=== PATIENT | male | born 1950 | race Caucasian/White ===

== ENCOUNTER 2020-03-01 12:30 | Observation (INO) | payer MEDICARE, OTHER, SELFPAY ==
[2020-03-01] VITALS (8 sets, daily range): BP systolic 108–137; BP diastolic 65–93; PULSE 63–98; RESP 16–22; TEMP 36.4–36.7; O2SAT 94–97; BMI 37.1
--- NOTE | 2020-03-01 13:20 | DI.CT.S_ITS ---
PROCEDURE: CT ABDOMEN PELVIS W CON INDICATIONS: painless rectal bleeding TECHNIQUE: After the administration of oral and intravenous contrast, 5 mm thick sections acquired from the diaphragms to the symphysis. 5 mm thick coronal and sagittal reformats were performed. For radiation dose reduction, the following was used: automated exposure control, adjustment of mA and/or kV according to patient size. COMPARISON: None. FINDINGS: Image quality: Diagnostic. ABDOMEN: Lung bases: Lung bases are clear. However, calcified granuloma in the posterior right costophrenic angle is evident (image 3, series 2), measuring approximately 7 mm in diameter. An additional calcified granuloma is also evident slightly more inferiorly and laterally within the right lower lobe (image 12, series 2). Heart size is normal. Solid organs: The liver is normal in size, but noted to be slightly hypodense when compared to the spleen. Scattered foci of low-attenuation are seen within the medial segment of the left hepatic lobe that are compatible with small cysts. The gallbladder is within normal limits. The spleen, adrenals, and pancreas are unremarkable. The kidneys are normal in size and demonstrate mild retained lobulation. There is no hydronephrosis. Small hypodense foci are evident involving both kidneys. The largest is noted to be located along the posterior aspect of the inferior left kidney and measures 2.2 cm in diameter with a corresponding density value of 20 Hounsfield units, most likely representing a slightly dense cyst. This density value is technically indeterminate, however. A nonobstructing 4 mm calculus is evident within it the mid to upper right kidney. There is no hydronephrosis. No ureteral calculi or hydroureter is evident. Peritoneum and bowel: There is a small hiatal hernia. Mild prominence of the wall of the distal esophagus is present. The small bowel loops are nondilated. The appendix is well-visualized and normal without surrounding inflammation. A moderate amount of residual stool is seen within the colon. No obvious colonic masses are evident. No significant colonic diverticulosis is appreciated. His note that the colon is not adequately evaluated for masses on CT without oral contrast. There is a small fat containing periumbilical hernia. No free fluid, loculated fluid collection or free air is evident. Nodes and vessels: No retroperitoneal or mesenteric adenopathy. Aorta and inferior vena cava are normal in caliber. A circumaortic left renal vein is noted. Bones: No acute fracture or suspicious osseous lesion is evident. Moderate degenerative changes of the lumbar spine are present. PELVIS: Genitourinary: Bladder wall thickness is normal. The prostate gland is enlarged and partially projects into the urinary bladder. There may be a small amount of air contained within the bladder as well. The prostate measures at least 5.9 x 6.2 cm on the axial images (image 90, series 2). Miscellaneous: There is a small fat containing left inguinal hernia. No right inguinal hernias are evident. No free fluid or loculated fluid collections are identified. Bones: No suspicious bony lesions. No acute pelvic fractures are identified. No suspicious osseous lesions are present. IMPRESSION: 1. The source of the patient's rectal bleeding is not evident. 2. No possible mild constipation. No bowel obstruction. 3. Small fat containing periumbilical hernia. 4. Small hiatal hernia. Mild wall thickening of the distal esophagus may represent sequela from chronic reflux esophagitis. 5. Small fat containing left inguinal hernia. 6. Probable hepatic steatosis. 7. Bilateral renal cysts. Indeterminant exophytic left renal lesion most likely represents a hyperdense cyst. CT or MR urogram is recommended for further evaluation, which may be performed on a nonemergent basis. 8. Nonobstructing right renal calculus. 9. Enlarged prostate. Dictated by: Thad Parker M.D. on 03/01/2020 at 13:26 Approved by: Thad Parker M.D. on 03/01/2020 at 13:33
[2020-03-01 13:34] LABS: Add Manual Diff / Slide Review NO; Basophils Absolute Auto 100 /uL (0-100); Basophils Percent Auto 0.9 % (0-2); Eosinophils Absolute Auto 200 /uL (0-450); Eosinophils Percent Auto 1.9 % (2-4); Hematocrit 42.6 % (41-53); Hemoglobin 14.9 g/dL (13.5-17.5); Lymphocytes Absolute Auto 1700 /uL (1100-4500); Lymphocytes Percent Auto 20.2 % (25-40); Mean Corpuscular HGB Conc 34.9 % (30-36); Mean Corpuscular Hemoglobin 30.6 PG (26-34); Mean Corpuscular Volume 87.7 fL (80-100); Monocytes Absolute Auto 500 /uL (0-900); Monocytes Percent Auto 6.6 % (3-14); Neutrophils Absolute Auto 5800 /uL (1500-7000); Neutrophils Percent Auto 70.4 % (50-75); Platelet Count 209 X10^3/uL (150-400); Red Blood Cell Count 4.86 X10^6/uL (4.5-5.9); Red Cell Distribution Width 13.6 % (11.6-14.8); White Blood Cell Count 8.2 X10^3/uL (4.5-11.0)
[2020-03-01 13:45] LABS: Alanine Aminotransferase 30 IU/L (<50); Albumin 3.9 g/dL (3.5-5.0); Albumin Globulin Ratio 1.3 (1.0-2.8); Alkaline Phosphatase 69 U/L (38-126); Aspartate Aminotransferase 48 IU/L (17-59); BUN Creatinine Ratio 23.7 (6-22); Bilirubin Total 0.6 mg/dL (0.2-1.3); Blood Urea Nitrogen 28 mg/dL (9-20); Calcium 9.8 mg/dL (8.4-10.2); Carbon Dioxide 24 mmol/L (22-32); Chloride 105 mmol/L (98-107); Estimated Glomerular Filt Rate > 60.0 mL/min (>60); Globulin 2.9 g/dL (1.7-4.1); Glucose 153 mg/dL (80-110); HEMOLYSIS 49 (0-50); Potassium 4.3 mmol/L (3.4-5.1); Sodium 135 mmol/L (137-145); Total Protein 6.8 g/dL (6.3-8.2)
[2020-03-01] MEDS: SODIUM CHLORIDE 0.9% 1,000 ML 1000 ML IV (13:45)
[2020-03-01 13:56] LABS: Prothrombin Time 11.6 SECONDS (10.1-12.7)
[2020-03-01 13:59] LABS: PTT Partial Thromboplastin Tim 30 SECONDS (26.4-36.2)
--- NOTE | 2020-03-01 14:41 | ED.GIBLEED ---
HPI - GI Bleed General Chief complaint: GI Bleed Stated complaint: rectal bleeding today Time Seen by Provider: 03/01/20 12:46 Source: patient Mode of arrival: Ambulatory Limitations: no limitations History of Present Illness HPI Narrative: CC: Painless Rectal Bleeding HPI: The patient is a 69-year-old male who presents to the emergency department after he developed dark red rectal bleeding at approximately 9:30 a.m.. At 12:00 p.m. the bleeding appeared to be more bright. He states that there was blood in the toilet. He denies any rectal pain or discomfort or history of hemorrhoids. He denies a history of Crohn's disease ulcerative colitis diverticulitis diverticulosis. He has had a few colonoscopies without any pathology being identified. He denies being dizzy lightheaded. He states that feel completely normal without any pain or discomfort except for the rectal bleeding. He denies a history of diabetes mellitus but states that he has a history of gout. He also has a history of hypertension but no history of myocardial infarction COPD or asthma. Is a former smoker does not drink alcohol use any drugs including marijuana. Related Data Allergies Allergy/AdvReac Type Severity Reaction Status Date / Time No Known Drug Allergies Allergy Verified 03/01/20 12:52 Review of Systems Review of Systems Narrative: REVIEW OF SYSTEMS: CONSTITUTIONAL: The patient denies any fever chills or sweats. NEUROLOGICAL: Denies a headache numbness tingling paresthesias or anesthesia. EENT: He has had no sore throat or trouble swallowing CARDIO-PULMONARY: Denies any chest pain cough shortness of breath difficulty in breathing palpitations dizziness. GASTROINTESTINAL: He denies any abdominal pain nausea vomiting diarrhea. He has had rectal bleeding. He has never had this before. GENITAL URINARY: Denies any urinary symptoms. MUSCULOSKELETAL/ RHEUMATOLOGICAL: He has had no pain or discomfort. He states that he feels completely normal except for the rectal bleeding Patient History Medical History (Updated 03/01/20 @ 18:53 by Soc[place] Grande DO) Gout (Acute) Hypertension (Acute) Nephrolithiasis (Acute) Surgical History History of surgical removal of ganglion cyst (Acute) Status post left partial knee replacement (Acute) Family History (Updated 03/01/20 @ 18:54 by Soco Grande DO) Mother Liver cancer Father CVA (cerebral vascular accident) AAA (abdominal aortic aneurysm) Brother Healthy adult Sister Osteoarthritis Social History Smoking Status: Never smoker Smoking Status: Never smoker alcohol intake frequency: 0-2 drinks per day Substance Use Type: does not use Exam Narrative Exam Narrative: PHYSICAL EXAM: CONSTITUTIONAL: Awake, Alert, Oriented, Coherent, Cooperative in NAD. Does not appear toxic or ill. HEAD: AT/NC EENT: PERRL, FROM of eyes, no discharge, no nystagmus NOSE:No epistaxis or nasal drainage MOUTH:Oral mucosa is moist and pink, posterior pharynx is without erythema or exudate. NECK: Supple, no obvious JVD, Trachea is midline without stridor, no palpable LN. SPINE: Palpationof the cervical, Thoracic, Lumbar or Sacral spine reveals no gross deformity or tenderness. No CVA tenderness. THORAX: No deformity, retractions, chest wall tenderness. LUNGS: Clear, symmetrical breath sounds without respiratory distress. HEART: Normal heart tones, regular rhythm and rate without murmur. ABDOMEN: Soft, non-tender, normal bowel sounds without guarding, rebound, rigidity or palpable mass. Rectal Exam: No hemorrhoids good sphincter tone no rectal masses the patient has grossly bloody stool that appears like bright raspberry stool that tests grossly positive for blood. EXTREMITIES: No edema, deformity, tenderness or cyanosis. SKIN: No rash, bruising, petechiae or purpura. NEURO: Awake, alert, oriented, conversive, cranial nerves II-XII are symmetrical , moves all 4 extremities and is ambulatory. Initial Vital Signs Initial Vital Signs: Vital Signs Temperature 97.8 F 03/01/20 12:48 Pulse Rate 74 03/01/20 12:48 Respiratory Rate 16 03/01/20 12:48 Blood Pressure 137/84 03/01/20 12:48 Pulse Oximetry 96 03/01/20 12:48 Course Course Course Narrative: 1441: The patient's CT of the abdomen revealed 1. The source of the patient's rectal bleeding is not evident. 2. No possible mild constipation. No bowel obstruction. 3. Small fat containing periumbilical hernia. 4. Small hiatal hernia. Mild wall thickening of the distal esophagus may represent sequelae from chronic reflux esophagitis. 5. Small fat containing left inguinal hernia. 6. Probable hepatic steatosis. 7. Bilateral renal cysts. Indeterminate exophytic left renal lesion most likely represents a hyperdense cyst. CT or MRI urogram is recommended for further evaluation, which may be performed on nonemergent basis. 8. Nonobstructing right renal calculus. 9. Remote prostate. The patient's laboratory chemistries do not reveal any acute gross abnormality. 1451: I performed a rectal band on the patient which was grossly bloody and appeared like raspberry jelly that was grossly positive for occult blood. There was no rectal tenderness rectal masses or hemorrhoids palpable. A call was placed into Dr. Proctor the general surgeon on-call to discuss the patient. 1455: I discussed the patient with Dr. Proctor, he who states that the patient gets admitted to Medicine and he will arm scope the patient. He agrees that the patient could very easily decompensate and recommends that the patient be admitted. The arm Dr. Grande has been paged. Orders Ordered: ED Orders 03/01/20 13:20 CT abdomen pelvis w con Stat 03/01/20 13:24 Complete Blood Count AUTO DIFF Stat Comprehensive Metabolic Panel Stat Partial Thromboplastin Time Stat Prothrombin Time INR Stat Type and Screen Stat Acetaminophen (Tylenol) 650 mg PO Q6HR PRN PRN Reason: Fever/Mild Pain (1-3) Al Hydrox/Mg Hydrox/Simethicone (Maalox Plus) 30 ml PO Q6HR PRN PRN Reason: Dyspepsia Calcium Carbonate (Tums) 1,000 mg PO Q4HR PRN PRN Reason: Dyspepsia Sodium Chloride (Normal Saline 0.9%) 1,000 mls @ 100 mls/hr IV CONT ANNAMARIE Last Admin: 03/01/20 18:00 Dose: 100 mls/hr Documented by: [email or web address] Magnesium Hydroxide (Milk Of Magnesia) 30 ml PO DAILY PRN PRN Reason: Constipation Naloxone HCl (Narcan) 0.2 mg IV Q2MIN PRN PRN Reason: Opiate Reversal Ondansetron HCl (Zofran) 4 mg IV Q8HR PRN PRN Reason: Nausea And Vomiting Promethazine HCl (Phenadoz) 12.5 mg ID Q6HR PRN PRN Reason: Nausea And Vomiting Discontinued Medications Sodium Chloride (Normal Saline 0.9%) 1,000 mls @ 1,000 mls/hr IV BOLUS ONE Stop: 03/01/20 14:16 Last Infusion: 03/01/20 15:31 Dose: 0 mls/hr Documented by: Admin: 03/01/20 13:45 Dose: 1,000 mls/hr Documented by: [email or web address] Polyethylene Glycol/Electrolytes (Golytely Solution) 4,000 ml PO NOW ONE Stop: 03/01/20 18:11 Last Admin: 03/01/20 18:18 Dose: 4,000 ml Documented by: [email or web address] Vital Signs Vital signs: Vital Signs - 8 hr 03/01/20 12:48 03/01/20 13:33 03/01/20 13:38 Temperature 97.8 F Pulse Rate 74 71 Pulse Rate [Orthostatic Lying] 69 Pulse Rate [Orthostatic Sitting] 78 Pulse Rate [Orthostatic Standing] 68 Respiratory Rate 16 Blood Pressure 137/84 Blood Pressure [Left Arm] 108/65 Blood Pressure [Orthostatic Lying] 108/65 Blood Pressure [Orthostatic Sitting] 113/72 Blood Pressure [Orthostatic Standing] 115/79 Pulse Oximetry 96 94 03/01/20 14:47 Temperature Pulse Rate 98 H Pulse Rate [Orthostatic Lying] Pulse Rate [Orthostatic Sitting] Pulse Rate [Orthostatic Standing] Respiratory Rate 22 Blood Pressure Blood Pressure [Left Arm] 136/93 H Blood Pressure [Orthostatic Lying] Blood Pressure [Orthostatic Sitting] Blood Pressure [Orthostatic Standing] Pulse Oximetry 97 MDM - GI Bleed Lab Data Result diagrams: 03/01/20 13:24 03/01/20 13:24 Labs: Lab Results 03/01/20 03/01/20 03/01/20 Range/Units 13:24 13:24 13:24 WBC 8.2 (4.5-11.0) X10^3/uL RBC 4.86 (4.5-5.9) X10^6/uL Hgb 14.9 (13.5-17.5) g/dL Hct 42.6 (41-53) % MCV 87.7 (80-100) fL MCH 30.6 (26-34) PG MCHC 34.9 (30-36) % RDW 13.6 (11.6-14.8) % Plt Count 209 (150-400) X10^3/uL Neut % (Auto) 70.4 (50-75) % Lymph % (Auto) 20.2 L (25-40) % [place] % (Auto) 6.6 (3-14) % Eos % (Auto) 1.9 L (2-4) % Baso % (Auto) 0.9 (0-2) % Neut # (Auto) 5800 (3418-6031) /uL Lymph # (Auto) 1700 (4041-7527) /uL [place] # (Auto) 500 (0-900) /uL Eos # (Auto) 200 (0-450) /uL Baso # (Auto) 100 (0-100) /uL PT 11.6 (10.1-12.7) SECONDS INR 1.0 (0.9-1.3) APTT 30 (26.4-36.2) SECONDS Sodium 135 L (137-145) mmol/L Potassium 4.3 (3.4-5.1) mmol/L Chloride 105 (98-107) mmol/L Carbon Dioxide 24 (22-32) mmol/L BUN 28 H (9-20) mg/dL Creatinine 1.18 (0.66-1.25) mg/dL Estimated GFR > 60.0 (>60) mL/min BUN/Creatinine Ratio 23.7 H (6-22) Glucose 153 H (80-110) mg/dL Calcium 9.8 (8.4-10.2) mg/dL Total Bilirubin 0.6 (0.2-1.3) mg/dL AST 48 (17-59) IU/L ALT 30 (<50) IU/L Alkaline Phosphatase 69 (38-126) U/L Total Protein 6.8 (6.3-8.2) g/dL Albumin 3.9 (3.5-5.0) g/dL Globulin 2.9 (1.7-4.1) g/dL Albumin/Globulin Ratio 1.3 (1.0-2.8) Blood Type Antibody Screen 03/01/20 Range/Units 13:24 WBC (4.5-11.0) X10^3/uL RBC (4.5-5.9) X10^6/uL Hgb (13.5-17.5) g/dL Hct (41-53) % MCV (80-100) fL MCH (26-34) PG MCHC (30-36) % RDW (11.6-14.8) % Plt Count (150-400) X10^3/uL Neut % (Auto) (50-75) % Lymph % (Auto) (25-40) % [place] % (Auto) (3-14) % Eos % (Auto) (2-4) % Baso % (Auto) (0-2) % Neut # (Auto) (3419-4624) /uL Lymph # (Auto) (5559-3750) /uL [place] # (Auto) (0-900) /uL Eos # (Auto) (0-450) /uL Baso # (Auto) (0-100) /uL PT (10.1-12.7) SECONDS INR (0.9-1.3) APTT (26.4-36.2) SECONDS Sodium (137-145) mmol/L Potassium (3.4-5.1) mmol/L Chloride (98-107) mmol/L Carbon Dioxide (22-32) mmol/L BUN (9-20) mg/dL Creatinine (0.66-1.25) mg/dL Estimated GFR (>60) mL/min BUN/Creatinine Ratio (6-22) Glucose (80-110) mg/dL Calcium (8.4-10.2) mg/dL Total Bilirubin (0.2-1.3) mg/dL AST (17-59) IU/L ALT (<50) IU/L Alkaline Phosphatase (38-126) U/L Total Protein (6.3-8.2) g/dL Albumin (3.5-5.0) g/dL Globulin (1.7-4.1) g/dL Albumin/Globulin Ratio (1.0-2.8) Blood Type O Positive Antibody Screen Negative Discharge Plan Departure Patient Disposition: Admitted As Inpatient Clinical Impression: Acute lower GI bleeding Referrals: Vipul Florentino MD [Primary Care Provider] - Admit Date/Time: 03/01/20 16:05 Admit Provider: Soco Grande
[2020-03-01] MEDS: SODIUM CHLORIDE 0.9% 1,000 ML 100 ML IV (18:00)
[2020-03-01] MEDS: PEG3350/SOD SULF,BICARB,CL/KCL 4,000 ML SOLUTION 4000 ML PO (18:18)
--- NOTE | 2020-03-01 18:49 | PM.HP.1 ---
History of Present Illness History of Present Illness Date Patient Seen: 03/01/20 Chief complaint: rectal bleeding today Narrative: Jakub Wing is a 69-year-old male with a past medical history significant for hypertension and gout who presented to the ED after several episodes of hematochezia. The patient reports that he awoke this morning had a normal bowel movement around 8:00 a.m.. He then later in the morning around 9:45 had a painless dark red bowel movement with blood clots. He proceeded about his day and had another episode of hematochezia around 12:45. He then had another episode of hematochezia around 16:45 prompting him to go to the emergency department. He has never had had rectal bleeding previously. He had a sigmoidoscopy at 51 years old and then a colonoscopy at 61 years old which was reportedly within normal limits and had no polyps present. Has no personal or family history of colon cancer or inflammatory bowel disease. He reports normal bowel function with occasional constipation in which he needs to strain to have a bowel movement approximately once a week. He denies headache, lightheadedness or dizziness, near-syncope or syncope, chest pain, palpitations, or fatigue. In the ED, his hemoglobin and hematocrit are within normal limits but he was found to have bright red blood per rectum and no external hemorrhoids per ED provider. The patient is being admitted observation for close monitoring and bowel prep and colonoscopy to evaluate GI bleed. PCP Dr. Florentino Patient History Medical History (Updated 03/01/20 @ 22:14 by [place] DO) Gout (Acute) Hypertension (Acute) Nephrolithiasis (Acute) Osteoarthritis (Acute) Surgical History History of surgical removal of ganglion cyst (Acute) Status post left partial knee replacement (Acute) Family & Social History Family History Mother Liver cancer Father CVA (cerebral vascular accident) AAA (abdominal aortic aneurysm) Brother Healthy adult Sister Osteoarthritis Safety & Behavioral: Feels Safe in Current Yes Environment Been Physically Hurt or No Threatened By a Person Tobacco & Substance use: Smoking Status Never smoker alcohol intake frequency None Substance Use Type does not use Meds Home Medications and Allergies Home Medications Medication Instructions Recorded Confirmed Type allopurinol 100 mg PO 03/01/20 History hydrochlorothiazide 12.5 mg PO 03/01/20 History losartan 100 mg PO 03/01/20 History Allergies Allergy/AdvReac Type Severity Reaction Status Date / Time No Known Drug Allergies Allergy Verified 03/01/20 12:52 Review of Systems Review of Systems Narrative: A 10 system comprehensive review of systems was conducted with the patient and found to be negative except as above in the History of Present Illness. Exam Vital Signs (past 8 hours): - 03/01/20 12:48 03/01/20 13:33 03/01/20 13:38 Temperature 97.8 F Pulse Rate 74 71 Pulse Rate [Orthostatic Lying] 69 Pulse Rate [Orthostatic Sitting] 78 Pulse Rate [Orthostatic Standing] 68 Respiratory Rate 16 Blood Pressure 137/84 Blood Pressure [Left Arm] 108/65 Blood Pressure [Orthostatic Lying] 108/65 Blood Pressure [Orthostatic Sitting] 113/72 Blood Pressure [Orthostatic Standing] 115/79 Pulse Oximetry 96 94 03/01/20 14:47 03/01/20 17:05 Temperature 97.6 F Pulse Rate 98 H 65 Pulse Rate [Orthostatic Lying] Pulse Rate [Orthostatic Sitting] Pulse Rate [Orthostatic Standing] Respiratory Rate 22 18 Blood Pressure 131/83 Blood Pressure [Left Arm] 136/93 H Blood Pressure [Orthostatic Lying] Blood Pressure [Orthostatic Sitting] Blood Pressure [Orthostatic Standing] Pulse Oximetry 97 97 Oxygen Delivery Method Room Air Narrative Exam Narrative: General: Older male sitting in bed and in no acute distress, well-developed, well-nourished, appropriately interactive. HEENT: Normocephalic, atraumatic. External ears without defect. Pupils equal, round, and reactive to light. Anicteric sclerae, moist conjunctivae, and no lid lag. Oropharynx free of erythema and cobble stoning with moist mucosa. Neck: Supple with full range of motion. No jugular venous distension. No lymphadenopathy or thyromegaly. Cardiovascular: Regular rate and rhythm without murmurs, rubs, or gallops appreciated. Pulmonary: Clear to auscultation bilaterally without crackles, wheezes, or rhonchi. Normal respiratory effort with no use of accessory muscles. Abdomen: Soft, obese, bowel sounds present, nontender, nondistended. No hepatosplenomegaly or masses appreciated. Extremities: No clubbing, cyanosis, or edema. Skin: Normal temperature, turgor, and texture; no rash, ulcers, or subcutaneous nodules appreciated. Neurological: Cranial nerves grossly intact. Normal muscle strength, tone, and bulk. Reflexes, coordination, and sensory function within normal limits. No known gait impairment. Psychiatric: Normal mood and affect. Alert and oriented to person, place, and time. Objective Labs Result Diagrams: 03/01/20 13:24 03/01/20 21:20 Labs: Laboratory Results - last 24 hr 03/01/20 03/01/20 03/01/20 13:24 13:24 13:24 WBC 8.2 RBC 4.86 Hgb 14.9 Hct 42.6 MCV 87.7 MCH 30.6 MCHC 34.9 RDW 13.6 Plt Count 209 Neut % (Auto) 70.4 Lymph % (Auto) 20.2 L [place] % (Auto) 6.6 Eos % (Auto) 1.9 L Baso % (Auto) 0.9 Neut # (Auto) 5800 Lymph # (Auto) 1700 [place] # (Auto) 500 Eos # (Auto) 200 Baso # (Auto) 100 PT 11.6 INR 1.0 APTT 30 Sodium 135 L Potassium 4.3 Chloride 105 Carbon Dioxide 24 BUN 28 H Creatinine 1.18 Estimated GFR > 60.0 BUN/Creatinine Ratio 23.7 H Glucose 153 H Calcium 9.8 Total Bilirubin 0.6 AST 48 ALT 30 Alkaline Phosphatase 69 Total Protein 6.8 Albumin 3.9 Globulin 2.9 Albumin/Globulin Ratio 1.3 Blood Type Antibody Screen 03/01/20 13:24 WBC RBC Hgb Hct MCV MCH MCHC RDW Plt Count Neut % (Auto) Lymph % (Auto) [place] % (Auto) Eos % (Auto) Baso % (Auto) Neut # (Auto) Lymph # (Auto) [place] # (Auto) Eos # (Auto) Baso # (Auto) PT INR APTT Sodium Potassium Chloride Carbon Dioxide BUN Creatinine Estimated GFR BUN/Creatinine Ratio Glucose Calcium Total Bilirubin AST ALT Alkaline Phosphatase Total Protein Albumin Globulin Albumin/Globulin Ratio Blood Type O Positive Antibody Screen Negative Assessment & Plan Assessment & Plan narrative: Jakub Wing is a 69-year-old male with a past medical history significant for hypertension and gout who presented to the ED after several episodes of hematochezia. 1. Acute lower GI bleed, present on admission. Active. -Patient presented after several episodes of painless hematochezia. Patient has never had GI bleed in the past. Patient has routine colonoscopy every 10 years without history of polyps. No personal or family history of colon cancer or IBD. -Differential diagnosis includes diverticular bleed versus internal hemorrhoid bleed versus AVM versus unlikely polyp or malignancy. -Initial H&H 14.9 and 42.6. Continue to monitor H&H daily unless patient has continued bleeding than will monitor more frequently. -Continue to monitor closely on telemetry. -Continue IV fluids with normal saline at 100 mL/hr. -Consulted general surgery, Dr. Proctor, who plans to perform colonoscopy once bowel prep is complete. Patient is NPO and start bowel tonight. 2. Hypertension, chronic, present on admission. Stable. -held home antihypertensive including losartan and hydrochlorothiazide due to GI bleed and possibility for hypovolemia and hypotension. 3. Gout, chronic, present on admission. Stable. -Continue allopurinol once dose is confirmed. 4. BPH evident on CT, chronic, present on admission. Stable. -Patient has nocturia and occasional urinary hesitancy. Patient is not medically treated for BPH and consider treatment and and evaluation of prostate per PCP. Code status: Full code VTE prophylaxis: SCDs, chemical prophylaxis contraindicated due to GI bleed Patient is admitted under observation status with expected length of stay less than 2 midnights due to severity of presenting symptoms, risk of adverse event, and complexity of treatment plan. Quality VTE Deep Vein Thrombosis/Pulmonary Embolism Present on Admission: No
[2020-03-01 21:35] LABS: Alanine Aminotransferase 27 IU/L (<50); Albumin 3.9 g/dL (3.5-5.0); Albumin Globulin Ratio 1.4 (1.0-2.8); Alkaline Phosphatase 57 U/L (38-126); Aspartate Aminotransferase 40 IU/L (17-59); BUN Creatinine Ratio 20.2 (6-22); Bilirubin Total 0.5 mg/dL (0.2-1.3); Blood Urea Nitrogen 23 mg/dL (9-20); Calcium 9.5 mg/dL (8.4-10.2); Carbon Dioxide 24 mmol/L (22-32); Chloride 106 mmol/L (98-107); Estimated Glomerular Filt Rate > 60.0 mL/min (>60); Globulin 2.7 g/dL (1.7-4.1); Glucose 117 mg/dL (80-110); HEMOLYSIS < 15 (0-50); Potassium 4.1 mmol/L (3.4-5.1); Sodium 138 mmol/L (137-145); Total Protein 6.6 g/dL (6.3-8.2)
[2020-03-02] VITALS (13 sets, daily range): BP systolic 98–151; BP diastolic 66–89; PULSE 53–68; RESP 16–26; TEMP 35.8–36.8; O2SAT 94–98
--- NOTE | 2020-03-02 | PATH_ITS ---
[facility] Accession Number: [id number] . 01 Material submitted: . PART A: cecum - CECUM POLYP PART B: colon - RANDOM LEFT COLON BIOPSIES PART C: colon - POLYP AT 55 CM PART D: colon - POLYP AT 40 CM . 01 Clinical history: . RECTAL BLEEDING TODAY . 02 Diagnosis: A. Cecum, Polyp, Biopsy: Tubular adenoma. . B. Random Left Colon, Biopsies: Colonic mucosa with no diagnostic abnormality. Negative for active, chronic, and microscopic colitis. Negative for dysplasia and malignancy. . C. Colon, Polyp at 55 cm, Biopsy: Tubulovillous adenoma, focally ulcerated with features suggestive of trauma/prolapse. No evidence of malignancy or high-grade dysplasia. . D. Colon, Polyp at 40 cm, Biopsy: Hyperplastic polyp. [facility] 03/04/2020 1416 Local . 02 Electronically signed: . Smiley Dumont MD, Pathologist NPI- [id number] . 01 Gross description: . Part A: CECUM POLYP: Received in formalin is 1 fragment(s) of kim, soft tissue measuring 0.3 x 0.3 x 0.2 cm submitted entirely in 1 cassette(s) Part B: RANDOM LEFT COLON BIOPSIES: Received in formalin are multiple fragment(s) of kim, soft tissue measuring 0.8 x 0.5 x 0.1 cm in aggregate submitted entirely in 1 cassette(s) Part C: POLYP AT 55 CM: Received in formalin are multiple fragment(s) of kim, soft tissue measuring 1.3 x 0.7 x 0.6 cm to 1.5 x 1.0 x 0.3 cm submitted entirely in 3 cassette(s) Part D: POLYP AT 40 CM: Received in formalin is 1 fragment(s) of kim, soft tissue measuring 0.3 x 0.3 x 0.1 cm submitted entirely in 1 cassette(s) /QBJ 03/03/[address] [place] [address] . 02 Pathologist provided ICD-10: D12.6, D12.0 . 02 CPT . 841661, 769154, 120692, 282190 Performed at: 01 [facility] [address] [place] [address], [place], [place] [id number] MD Herberth Chavez MD Phone: [phone] Performed at: [address] [id number] [place], [place] [id number] MD Smiley Dumont MD Phone: [phone]
[2020-03-02] MEDS: SODIUM CHLORIDE 0.9% 1,000 ML 100 ML IV (02:49)
[2020-03-02 05:42] LABS: Add Manual Diff / Slide Review NO; Basophils Absolute Auto 100 /uL (0-100); Basophils Percent Auto 0.9 % (0-2); Eosinophils Absolute Auto 200 /uL (0-450); Eosinophils Percent Auto 2.9 % (2-4); Hematocrit 40.1 % (41-53); Hemoglobin 13.9 g/dL (13.5-17.5); Lymphocytes Absolute Auto 2200 /uL (1100-4500); Lymphocytes Percent Auto 28.5 % (25-40); Mean Corpuscular HGB Conc 34.5 % (30-36); Mean Corpuscular Hemoglobin 30.6 PG (26-34); Mean Corpuscular Volume 88.7 fL (80-100); Monocytes Absolute Auto 800 /uL (0-900); Monocytes Percent Auto 10.4 % (3-14); Neutrophils Absolute Auto 4500 /uL (1500-7000); Neutrophils Percent Auto 57.3 % (50-75); Platelet Count 174 X10^3/uL (150-400); Red Blood Cell Count 4.53 X10^6/uL (4.5-5.9); Red Cell Distribution Width 13.7 % (11.6-14.8); White Blood Cell Count 7.9 X10^3/uL (4.5-11.0)
[2020-03-02 05:48] LABS: Magnesium 1.8 mg/dL (1.6-2.3)
--- NOTE | 2020-03-02 08:17 | PM.CN ---
History of Present Illness Consult details Date Patient Seen: 03/02/20 Time Patient Seen: 08:00 Chief complaint: rectal bleeding today Reason for consult: Rectal bleeding Requesting provider: [place] Narrative: The patient is a gentleman whose began having bright red blood per rectum yesterday. He had multiple bowel movements which have continued through the night. No abdominal pain. He has never had this happen before. Last colonoscopy was 8 years ago. He took some ephedrine yesterday but otherwise is not on any blood thinners. Difficult for him to quantify the amount of bleeding that is happening. Meds Home Medications and Allergies Home Medications Medication Instructions Recorded Confirmed Type allopurinol 100 mg PO 03/01/20 History hydrochlorothiazide 12.5 mg PO 03/01/20 History losartan 100 mg PO 03/01/20 History Allergies Allergy/AdvReac Type Severity Reaction Status Date / Time No Known Drug Allergies Allergy Verified 03/01/20 12:52 Review of Systems Review of Systems Narrative: Patient denies any visual difficulties other wearing glasses. No double vision pain is eyes earaches or sore throats no teeth ache or problems swallowing. No cough cold or asthma. No heart problems chest pain or murmurs. No seizures or blackouts. No anxiety or depression. No unusual bruising or bleeding other than this rectal bleeding. No problems with this thyroid pancreas he is aware of. Exam Vital Signs (past 8 hours): - 03/02/20 03:00 03/02/20 07:00 Temperature 98.3 F 96.9 F L Pulse Rate 66 68 Respiratory Rate 16 18 Blood Pressure 132/81 151/74 H Pulse Oximetry 96 96 Oxygen Delivery Method Room Air Oxygen Flow Rate 0 Narrative Exam Narrative: Cooperative pleasant gentleman no apparent distress. Eyes are nonicteric. Pupils equal round and she would like conjunctiva pink. Ears without lesion. Nasal septum midline. Oral mucosa pink moist without open lesions. There are no nodes in the neck supraclavicular areas. Trachea is midline mobile. Thyroid is not enlarged. Lungs are clear to auscultation without rales or rhonchi. Equal percussion. Heart regular rate and rhythm without murmur gallop. No heave lift or thrill. Abdomen is protuberant soft. He has a small umbilical hernia that is not tender. He was unaware had it. Liver and spleen are not enlarged. There are no palpable masses. Patient is alert and oriented x3. Speech rate and content are appropriate. Affect is appropriate. Objective Labs Result Diagrams: 03/02/20 05:30 03/01/20 21:20 Labs: Laboratory Results - last 24 hr 03/01/20 03/01/20 03/01/20 13:24 13:24 13:24 WBC 8.2 RBC 4.86 Hgb 14.9 Hct 42.6 MCV 87.7 MCH 30.6 MCHC 34.9 RDW 13.6 Plt Count 209 Neut % (Auto) 70.4 Lymph % (Auto) 20.2 L [place] % (Auto) 6.6 Eos % (Auto) 1.9 L Baso % (Auto) 0.9 Neut # (Auto) 5800 Lymph # (Auto) 1700 [place] # (Auto) 500 Eos # (Auto) 200 Baso # (Auto) 100 PT 11.6 INR 1.0 APTT 30 Sodium 135 L Potassium 4.3 Chloride 105 Carbon Dioxide 24 BUN 28 H Creatinine 1.18 Estimated GFR > 60.0 BUN/Creatinine Ratio 23.7 H Glucose 153 H Calcium 9.8 Magnesium Total Bilirubin 0.6 AST 48 ALT 30 Alkaline Phosphatase 69 Total Protein 6.8 Albumin 3.9 Globulin 2.9 Albumin/Globulin Ratio 1.3 Blood Type Antibody Screen 03/01/20 03/01/20 03/02/20 13:24 21:20 05:30 WBC 7.9 RBC 4.53 Hgb 13.9 Hct 40.1 L MCV 88.7 MCH 30.6 MCHC 34.5 RDW 13.7 Plt Count 174 Neut % (Auto) 57.3 Lymph % (Auto) 28.5 [place] % (Auto) 10.4 Eos % (Auto) 2.9 Baso % (Auto) 0.9 Neut # (Auto) 4500 Lymph # (Auto) 2200 [place] # (Auto) 800 Eos # (Auto) 200 Baso # (Auto) 100 PT INR APTT Sodium 138 Potassium 4.1 Chloride 106 Carbon Dioxide 24 BUN 23 H Creatinine 1.14 Estimated GFR > 60.0 BUN/Creatinine Ratio 20.2 Glucose 117 H Calcium 9.5 Magnesium Total Bilirubin 0.5 AST 40 ALT 27 Alkaline Phosphatase 57 Total Protein 6.6 Albumin 3.9 Globulin 2.7 Albumin/Globulin Ratio 1.4 Blood Type O Positive Antibody Screen Negative 03/02/20 05:30 WBC RBC Hgb Hct MCV MCH MCHC RDW Plt Count Neut % (Auto) Lymph % (Auto) [place] % (Auto) Eos % (Auto) Baso % (Auto) Neut # (Auto) Lymph # (Auto) [place] # (Auto) Eos # (Auto) Baso # (Auto) PT INR APTT Sodium Potassium Chloride Carbon Dioxide BUN Creatinine Estimated GFR BUN/Creatinine Ratio Glucose Calcium Magnesium 1.8 Total Bilirubin AST ALT Alkaline Phosphatase Total Protein Albumin Globulin Albumin/Globulin Ratio Blood Type Antibody Screen Assessment & Plan Assessment & Plan narrative: Patient with rectal bleeding. He has hypertension presently under treatment apparently has had gout in the past. The bleeding has continued during a bowel prep. I have discussed colonoscopy with him. I have discussed the procedure and the rationale with the patient including risks of bleeding, perforation which would necessitate a major operation, failure to find remove all lesions and the potential to tattoo. They appeared to understand and wished to proceed.
--- NOTE | 2020-03-02 08:45 | CM.DANOTE ---
DCP: Case received, EMR reviewed and met with patient. Introduced self and role. Was able to meet with patient and obtain information regarding his baseline activity level. DCP assessment completed with information currently available. Patient is a 69 year old male who admitted yesterday afternoon to the care of the hospitalist team. PCP: Dr. Florentino. [facility] Patient came to the hospital via private vehicle secondary to rectal bleeding. Patient had been passing dark red blood with clots in the toilet. Met with patient in his room. He was sitting up in bed, pleasant. He had stated, he had never had this problem before, and is normally pretty healthy. He is independent at baseline. He is retired and resides in [facility] with his , Stacey. Patient has been preparing for a colonoscopy today. P: DCP to continue to follow. He will be having a colonoscopy today to assess the cause of his rectal bleeding. Patient should be able to go home when he is medically stable. Ana Luisa Trinh RN/Technology Solutions Architect
[2020-03-02] MEDS: SODIUM CHLORIDE 0.9% FLUSH 10 ML IV (09:36)
[2020-03-02 09:47] LABS: COVID19 -Nasal RAPID Negative (Negative)
--- NOTE | 2020-03-02 10:36 | PC.NURSE ---
Addendum entered by Grisel Yanes R.N. 03/02/20 15:50: Post-op: Late entry Back to room 210 approx 1330. Drowsy but arousable to voice/touch, oriented X3. Denied pain or discomfort. Denied N/V. Abd soft, non-tender. This life underwriter called Dr Proctor approx 1445 for diet order, clear liquids ordered. Per Dr Grande (per her discussion with Dr Proctor), patient may possibly be able to go home this evening. Able to make needs known and calls appropriately. Light and belongings within reach. Addendum entered by Grisel Yanes R.N. 03/02/20 11:39: Off floor to surgery at 1125. OR nurse aware consent still needs to be signed. Original Note: Shift summary: Alert and oriented X3. Indep in room, steady on feet. Remains NPO for colonoscopy later today. Has finished his bowel prep. Reports bowel movements are basically like water except for the blood. This life underwriter observed eduardo red blood in toilet. Patient denies abd pain/discomfort, nausea or other complaint. Denies shortness of breath, dizziness or lightheadedness. No other s/sx bleeding. Lungs CTA, HRR. Tele monitoring ongoing. IV fluids dc'd per order from Dr Grande (she was aware patient is NPO). Patient resting in bed, visiting with . Able to make needs known and calls appropriately. Call light and belongings within reach.
[2020-03-02] MEDS: LACTATED RINGERS 1,000 ML 150 ML IV (11:35)
--- NOTE | 2020-03-02 11:37 | PM.PREOP ---
Pre-operative Note COVID-19 COVID-19 status: Negative Result date/Date tested (Pos, Neg/Pending): 03/02/20 Interval Note History & Physical reviewed/Exam performed by Physician: Yes Changes to H&P: No ASA Class (for procedural sedation): II
--- NOTE | 2020-03-02 12:45 | P.OP.ENDO_ITS ---
Operative Date/Time/Diagnoses Date of procedure: 03/02/20 Time of procedure: 12:45 Pre-op diagnosis: Lower GI bleed Post-op diagnosis: same (Due to polyp at 55 cm. Additional polyps found.) Procedure & Clinicians Study performed: Colonoscopy with cold biopsy and hot snare polypectomy Same procedure as scheduled: Yes Indications: Lower GI bleed Surgeon: Karthikeyan Proctor Procedure Notes SCOAP/Timeout: Performed Procedure in detail: The patient was placed in the left lateral decubitus position and underwent IV sedation directed by the surgeon consisting of fentanyl and Versed. Digital exam was unremarkable. The scope was inserted and advanced through the rectum into the sigmoid, descending, transverse, and ascending colon. I did not see any diverticulosis. There was blood from the rectum to 80 cm. Above this level I could not see any significant amount of bleeding. Most of the blood appeared to be small clots on the surface that irrigated off but it was difficult to tell as the amount of sanguinous fluid was significant in places.. The cecum was reached identified by the ileocecal valve and the appendiceal opening. The ileocecal valve was successfully cannulated. The terminal ileum was normal in appearance. A polyp in the cecum was biopsied and removed. This was a very small lesion. The scope was gradually brought out. I did random biopsies from about 80 to the point at which I found the very large polyp. Additional Polyps were found at 55 and 40 cm from the anal verge. The polyp at 40 cm was small and removed with cold biopsy forceps. The lesion at 55 cm however was quite large. There was a discolored area on it as though it had bled and clotted. It was on a broad-based stalk. I snared it in pieces, removing it piecemeal. It was quite difficult to tell if every bit of the lesi on had been removed because the stalk blended into the base of the lesion. As best I could tell all of it was removed. I injected Tracy ink a few cm beyond the lesion in 3 areas. The scope was brought out further and the lesion at 40 cm was biopsied and removed. This was a small polyp.. The scope ultimately was retroflexed in the rectum. The appearance was normal.. The scope was removed and the patient tolerated the procedure well. Due to the amount of blood in the colon from about 60 cm distal the exam was really inadequate to be confident every small polyp was removed. Above this level the prep was adequate. If this is a benign lesion Will plan to do a flexible sigmoidoscopy to at least 60 cm in about 3 months to confirm that there is no regrowth and this lesion was completely removed. Scope withdrawal time: 38 minutes total Sedation minutes: 55 Findings: polyp and possible cancer Specimen(s): other (Polyps from the cecum, 55 cm, 40 cm, and random colon between 55 and 80 cm. ) Complications: none Post-procedure Recommendations: Other recommendation (Flexible sigmoidoscopy in 3 months to confirm complete removal and no regrowth if this lesion is neoplastic but benign) Follow up: months (Three months) Disposition: PACU
[2020-03-02] MEDS: fentaNYL 250 MCG/5 ML INJ IV (12:47)
[2020-03-02] MEDS: MIDAZOLAM 5 MG/5 ML VIAL IV (12:48)
--- NOTE | 2020-03-02 15:06 | P.DS_ITS ---
History of Present Illness History of Present Illness Chief complaint: rectal bleeding today Narrative: Written by myself Dr. Grande: Jakub Wing is a 69-year-old male with a past medical history significant for hypertension and gout who presented to the ED after several episodes of hematochezia. The patient reports that he awoke this morning had a normal bowel movement around 8:00 a.m.. He then later in the morning around 9:45 had a painless dark red bowel movement with blood clots. He proceeded about his day and had another episode of hematochezia around 12:45. He then had another epi sode of hematochezia around 16:45 prompting him to go to the emergency department. He has never had had rectal bleeding previously. He had a sigmoidoscopy at 51 years old and then a colonoscopy at 61 years old which was reportedly within normal limits and had no polyps present. Has no personal or family history of colon cancer or inflammatory bowel disease. He reports normal bowel function with occasional constipation in which he needs to strain to have a bowel movement approximately once a week. He denies headache, lightheadedness or dizziness, near-syncope or syncope, chest pain, palpitations, or fatigue. In the ED, his hemoglobin and hematocrit are within normal limits but he was found to have bright red blood per rectum and no external hemorrhoids per ED provider. The patient is being admitted observation for close monitoring and bowel prep and colonoscopy to evaluate GI bleed. PCP Dr. Florentino Discharge Providers Provider Date of admission: 03/01/20 16:05 Discharge Date: 03/02/20 Primary care physician: Vipul Florentino MD Consults: 03/01/20 18:08 Consult to Physician Routine Comment: Consulting Provider: Karthikeyan Proctor Reason for consultation: G.I BLEED Has provider been notified: Yes Discharge provider: [place] DO Summary Hospital Course Discharge Diagnosis: 1. Acute lower GI bleed, likely secondary to large polyp, present on admission. Resolved. 2. Hypertension, chronic, present on admission. Stable. 3. Gout, chronic, present on admission. Stable. 4. BPH evident on CT, chronic, present on admission. Stable. Hospital Course: Jakub Wing is a 69-year-old male with a past medical history significant for hypertension and gout who presented to the ED after several episodes of hematoc hezia. 1. Acute lower GI bleed, likely secondary to large polyp, present on admission. Resolved. -Patient presented after several episodes of painless hematochezia. Patient has never had GI bleed in the past. Patient has routine colonoscopy every 10 years without history of colon polyps. No personal or family history of colon cancer or IBD. -Initial hemoglobin and hematocrit 14.9 and 42.6, respectively. Hemoglobin trend down to 13.9 due to GI bleeding and dilutional due to IV fluids. Con tinued to monitor H&H daily unless patient has continued bleeding than will monitor more frequently. -Continued to monitor closely on telemetry. Patient remained in normal sinus rhythm throughout hospitalization. -Continued IV fluids while NPO and undergoing bowel prep then discontinued. -Consulted general surgery, Dr. Proctor, who performed colonoscopy. Patient had several small polyps and 1 large polyp with stigmata bleeding all of which were removed and sent for pathology. Large polyp was removed in piecemeal fashion and tattooed where the polyp originated. Per Dr. Proctor, if the large polyp is benign then will pursue flexible sigmoidoscopy to at least 60 cm in about 3 months to confirm that there is no regrowth and that this lesion was completely removed. -Continued to monitor patient for rebleeding which did not occur and he was discharged home. Recommended clear liquid tonight and clear/soft diet for next 1-2 days then advance as tolerated. 2. Hypertension, chronic, present on admission. Stable. -Held home antihypertensives including losartan and hydrochlorothiazide due to GI bleed and possibility for hypovolemia and hypotension. Instructed patient to restart home antihypertensives tomorrow including losartan 100 mg daily and hydrochlorothiazide 12.5 mg daily. 3. Gout, chronic, present on admission. Stable. -Held allopurinol as patient was NPO. Patient reports he takes half a tab of allopurinol 100 mg daily that he is prescribed and instructed patient to restart allopurinol tomorrow and recommended he take the full dose of allopurinol to effectively lower uric acid as he has history of nephrolithiasis and CT has evidence of small nonobstructing nephrolithiasis as below which may be due to uric acid stones. Also recommended he have his uric acid level checked periodically to assure he is on the correct dose of allopurinol. 4. BPH evident on CT, chronic, present on admission. Stable. -Patient has nocturia and occasional urinary hesitancy. Patient is not medically treated for BPH and recommended he consider treatment for BPH and and evaluation of prostate per PCP. 5. History of nephrolithiasis. -CT abdomen and pelvis with contrast demonstrated normal size kidneys with mild retained lobulation, 4 mm nonobstructing calculus evident within the mid to upper right kidney without hydronephrosis, no ureteral calculi or hydroureter, and small hypodense foci are evident involving both kidneys with largest along the posterior aspect of the inferior left kidney and measures 2.2 cm in diameter with a corresponding density value of 20 Hounsfield units, that is indeterminate and most likely representing a slightly dense cyst. Exam Vital Signs (past 8 hours): - 03/02/20 11:17 03/02/20 12:46 03/02/20 12:51 Temperature 97.7 F Pulse Rate 65 66 60 Respiratory Rate 18 16 26 H Blood Pressure 116/66 103/76 99/68 Pulse Oximetry 97 97 97 03/02/20 12:56 03/02/20 13:00 03/02/20 13:25 Temperature 97.3 F L Pulse Rate 63 62 57 L Respiratory Rate 20 26 H 18 Blood Pressure 98/73 111/76 126/88 Pulse Oximetry 98 97 94 03/02/20 13:40 03/02/20 14:45 Temperature 96.9 F L 96.5 F L Pulse Rate 59 L 53 L Respiratory Rate 16 16 Blood Pressure 116/68 121/83 Pulse Oximetry 94 94 Oxygen Delivery Method Room Air Oxygen Flow Rate 0 Narrative Exam Narrative: General: Older male sitting in bed and in no acute distress, well-developed, well-nourished, appropriately interactive. HEENT: Normocephalic, atraumatic. External ears without defect. Pupils equal, round, and reactive to light. Anicteric sclerae, moist conjunctivae, and no lid lag. Oropharynx free of erythema and cobble stoning with moist mucosa. Neck: Supple with full range of motion. No jugular venous distension. No lymphadenopathy or thyromegaly. Cardiovascular: Regular rate and rhythm without murmurs, rubs, or gallops appreciated. Pulmonary: Clear to auscultation bilaterally without crackles, wheezes, or rhonchi. Normal respiratory effort with no use of accessory muscles. Abdomen: Soft, obese, bowel sounds present, nontender, nondistended. No hepatosplenomegaly or masses appreciated. Extremities: No clubbing, cyanosis, or edema. Skin: Normal temperature, turgor, and texture; no rash, ulcers, or subcutaneous nodules appreciated. Neurological: Cranial nerves grossly intact. Normal muscle strength, tone, and bulk. Reflexes, coordination, and sensory function within normal limits. No known gait impairment. Psychiatric: Normal mood and affect. Alert and oriented to person, place, and time. Objective Labs Result Diagrams: 03/02/20 05:30 03/01/20 21:20 Labs: Laboratory Results - last 24 hr 03/01/20 03/02/20 03/02/20 21:20 05:30 05:30 WBC 7.9 RBC 4.53 Hgb 13.9 Hct 40.1 L MCV 88.7 MCH 30.6 MCHC 34.5 RDW 13.7 Plt Count 174 Neut % (Auto) 57.3 Lymph % (Auto) 28.5 [place] % (Auto) 10.4 Eos % (Auto) 2.9 Baso % (Auto) 0.9 Neut # (Auto) 4500 Lymph # (Auto) 2200 [place] # (Auto) 800 Eos # (Auto) 200 Baso # (Auto) 100 Sodium 138 Potassium 4.1 Chloride 106 Carbon Dioxide 24 BUN 23 H Creatinine 1.14 Estimated GFR > 60.0 BUN/Creatinine Ratio 20.2 Glucose 117 H Calcium 9.5 Magnesium 1.8 Total Bilirubin 0.5 AST 40 ALT 27 Alkaline Phosphatase 57 Total Protein 6.6 Albumin 3.9 Globulin 2.7 Albumin/Globulin Ratio 1.4 COVID-19 PCR 03/02/20 08:10 WBC RBC Hgb Hct MCV MCH MCHC RDW Plt Count Neut % (Auto) Lymph % (Auto) [place] % (Auto) Eos % (Auto) Baso % (Auto) Neut # (Auto) Lymph # (Auto) [place] # (Auto) Eos # (Auto) Baso # (Auto) Sodium Potassium Chloride Carbon Dioxide BUN Creatinine Estimated GFR BUN/Creatinine Ratio Glucose Calcium Magnesium Total Bilirubin AST ALT Alkaline Phosphatase Total Protein Albumin Globulin Albumin/Globulin Ratio COVID-19 PCR Negative Discharge Plan Discharge Plan Patient Disposition: Home Discharge comment: You are being discharged home. You had a large colon polyp that had evidence of bleeding and several small polyps all of which were removed and sent to pathology. The area that the large colon polyp was removed has been tattooed to assure that that area has no regrowth. You may have some residual blood in your stool and black from tattooing but if you continue to have significant bleeding please be seen by a medical provider. You may continue your normal medications. Please follow-up with your primary care provider, Dr. Florentino, regarding your hospitalization. Please follow-up with general surgery, Dr. Proctor, in 6 weeks for biopsy results and to likely schedule sigmoidoscopy. You had enlarged prostate on CT scan and you should have your PCP evaluate and treat your prostate. You also had a granuloma of your lungs which are type of scar tissue and likely benign. Discharge orders & Medications Prescriptions: Continued allopurinol 100 mg tablet 50 mg PO DAILY RF: 0 hydrochlorothiazide 12.5 mg tablet 12.5 mg PO DAILY RF: 0 losartan 100 mg tablet 100 mg PO DAILY RF: 0 Follow up/Referrals: Vipul Florentino MD [Primary Care Provider] - Karthikeyan Proctor MD [Physician] - 6 Weeks (Please call my office and make a follow-up appointment to see me in about 10-12 weeks from now. That way I can schedule your next procedure. We will contact you if there is anything unusual about the pathology. You should also contact us or go to the emergency room if you start to bleed again. If you need to reach the doctor who did her colonoscopy please call our office and if it is after hours listen to the entire message. At the end you will be connected with the page miscellaneous machine operator who will call the doctor on-call for our practice.) Diet/Activity/Treatments Diet: Diet as Tolerated, Low-fat, Low-sodium and Low-cholesterol Visit Report/Discharge Packet Instructions: Colon Polyps, DI for Colon Polypectomy Visit Report Forms: Patient Portal/API, Stroke Signs & Symptoms Discharge Data Primary Care Provider: Vipul Florentino Attending Provider: [place] Admit Date/Time: 03/01/20 16:05 Quality VTE Deep Vein Thrombosis/Pulmonary Embolism Present on Admission: No
--- NOTE | 2020-03-02 19:08 | PC.NURSE ---
Patient discharged home via private car with . IV and tele removed. Discharge instructions given- patient instructed to follow up with Dr. Gomez and PCP and to seek medical attention if he begins to bleed again. Patient had no further questions, felt ready for discharge. Belongings packed and carried out by .
== END 2020-03-02 19:10 | disposition home or self-care (01) ==
LOC: ED 15:58 → AC 16:07
PROVIDERS: Specialist; Admitting Provider Internal Medicine; Emergency Provider Emergency Medicine; PCP Family Medicine; Referring Provider Emergency Medicine; Visit Provider Internal Medicine
PROC: 0DJD8ZZ Inspection of Lower Intestinal Tract, Via Natural or Artificial Opening Endoscopic (ICD-10-PCS; CPT 45378; principal; 2020-03-02 11:30)
DX: K62.5 Hemorrhage of anus and rectum (principal); I10 Essential (primary) hypertension; M10.9 Gout, unspecified; N40.0 Benign prostatic hyperplasia without lower urinary tract symptoms; D12.6 Benign neoplasm of colon, unspecified; D12.0 Benign neoplasm of cecum; Z11.59 Encounter for screening for other viral diseases
CPT/HCPCS: 45385; 45380; 36415; 74177; 80053; 83735; 85025; 85610; 85730; 86850; 86900; 86901; 87635; 96361; 96374; 96375; 99284; 99285; G0378; J2250; J3010; Q9967

== ENCOUNTER → 2020-05-31 09:50 | Outpatient (CLI) | payer MEDICARE, OTHER, SELFPAY ==
[2020-03-01 18:04] VITALS: BMI 37.1
[2020-06-01 16:02] LABS: COVID19 Sendout Not Detected (Not Detect)
== END ==
PROVIDERS: PCP Family Medicine; Visit Provider Physician Assistant
DX: Z11.59 Encounter for screening for other viral diseases (principal)
CPT/HCPCS: 87635

== ENCOUNTER 2020-06-03 08:13 | Day surgery (SDC) | payer MEDICARE, OTHER, SELFPAY ==
[2020-03-01 18:04] VITALS: BMI 37.1
--- NOTE | 2020-06-03 | PATH_ITS ---
[facility] Accession Number: [id number] . 01 Material submitted: . colon - POLYP AT 50CM . 01 Clinical history: . SDC . 02 Diagnosis: Polyp at 50 cm: Tubular adenoma. [facility] 06/09/2020 1437 Local . 02 Electronically signed: . Fadia Kim MD, Pathologist NPI- [id number] . 01 Gross description: . POLYP AT 50CM: Received in formalin is 1 fragment(s) of kim, soft tissue measuring 0.4 x 0.3 x 0.2 cm submitted entirely in 1 cassette(s) /MANISHA 06/05/2020 0045 Local . 02 Pathologist provided ICD-10: Z86.010, K63.5 . 02 CPT . 673608 Performed at: 01 [facility] [address] [place] [address], [place], [place] [id number] MD Herberth Chavez MD Phone: [phone] Performed at: 02 [facility] [address] [place], [place] [id number] MD Smiley Dumont MD Phone: [phone]
[2020-06-03 08:33] VITALS: BP 130/88; PULSE 67; RESP 16; TEMP 35.9; O2SAT 97
[2020-06-03 08:36] VITALS: BMI 36.6
--- NOTE | 2020-06-03 09:56 | PM.HP.1 ---
History of Present Illness History of Present Illness Date Patient Seen: 06/03/20 Time Patient Seen: 09:57 Chief complaint: SDC Narrative: Patient is a gentleman with a large polyp removed at 55 cm. He is here to make sure the removal was complete as I had to take it out in pieces. He declines any kind of sedation and does not want an IV. Patient History Medical History (Updated 06/03/20 @ 09:58 by Karthikeyan Proctor MD) Colon polyps (Acute) Gout (Acute) Hypertension (Acute) Nephrolithiasis (Acute) Osteoarthritis (Acute) Surgical History History of surgical removal of ganglion cyst (Acute) Status post left partial knee replacement (Acute) Family & Social History Family History Mother Liver cancer Father CVA (cerebral vascular accident) AAA (abdominal aortic aneurysm) Brother Healthy adult Sister Osteoarthritis Social History: household members spouse Tobacco & Substance use: Smoking Status Never smoker alcohol intake former alcohol intake frequency 0-2 drinks per day Substance Use Type does not use Meds Home Medications and Allergies Home Medications Medication Instructions Recorded Confirmed Type allopurinol 50 mg PO DAILY 03/01/20 06/03/20 History hydrochlorothiazide 12.5 mg PO DAILY 03/01/20 06/03/20 History losartan 100 mg PO DAILY 03/01/20 06/03/20 History Allergies Allergy/AdvReac Type Severity Reaction Status Date / Time No Known Drug Allergies Allergy Verified 06/03/20 08:27 Review of Systems Review of Systems ROS: Yes All systems reviewed with the patient and are negative except as otherwise documented Exam Vital Signs (past 8 hours): - 06/03/20 08:33 Temperature 96.7 F L Pulse Rate 67 Respiratory Rate 16 Blood Pressure 130/88 Pulse Oximetry 97 Oxygen Delivery Method Room Air Narrative Exam Narrative: Pleasant cooperative patient no apparent distress. Lungs are clear to auscultation. No rales or rhonchi. Heart regular rate and rhythm no murmur gallop. Abdomen is soft nontender without mass. No obvious hernias. Patient is alert and oriented x3. Assessment & Plan Assessment & Plan narrative: Patient here for flexible sigmoidoscopy to examine the area 55 cm. I have discussed the procedure with him. He wishes to proceed.
--- NOTE | 2020-06-03 10:02 | PM.PREOP ---
Pre-operative Note COVID-19 COVID-19 status: Negative Result date/Date tested (Pos, Neg/Pending): 05/31/20 Interval Note History & Physical reviewed/Exam performed by Physician: Yes Changes to H&P: No ASA Class (for procedural sedation): II
--- NOTE | 2020-06-03 10:11 | PM.OP.ENDO ---
Operative Date/Time/Diagnoses Date of procedure: 06/03/20 Time of procedure: 10:11 Pre-op diagnosis: History of large polyp at 55 cm from the anal verge Post-op diagnosis: same (No regrowth or residual seen. Tiny lesion above that was biopsied. It may not be neoplastic.) Procedure & Clinicians Study performed: Flexible sigmoidoscopy with cold biopsy Same procedure as scheduled: Yes Indications: Follow-up to make sure or a large polyp was completely removed. Surgeon: Karthikeyan Proctor Procedure Notes SCOAP/Timeout: Perform Procedure in detail: Patient was placed in left lateral decubitus position. He had declined sedation and IV. Digital exam was unremarkable though I really could not feel his prostate well due to his body habitus in length of my finger. Scope was inserted miss through the rectum into the sigmoid. I reached the area of the tattoo and went about 10 cm above that. I slowly brought I biopsy lesion in that region. It was small and may not even be a neoplasm. Scope was gradually brought out in the area around the tattoo was carefully examined. I could not see any residual or regrowth of the polyp. The scope was removed and the patient tolerated the procedure well. Scope withdrawal time: Not applicable Sedation minutes: 0 Findings: polyp (Possible) Specimen(s): other (Biopsy) Complications: none Post-procedure Recommendations: Colonscopy in 3 years Follow up: as needed Disposition: PACU
[2020-06-03 10:20] VITALS: BP 116/80; PULSE 59; RESP 12; TEMP 36.2; O2SAT 97
--- NOTE | 2020-06-03 13:51 | SUR.PHASEII ---
Late entry: Pt ready to go, no sedating meds given pt left in stable condition.
== END 2020-06-03 10:32 | disposition home or self-care (01) ==
PROVIDERS: PCP Family Medicine; Referring Provider Specialist; Visit Provider Specialist
PROC: 0DJD8ZZ Inspection of Lower Intestinal Tract, Via Natural or Artificial Opening Endoscopic (ICD-10-PCS; CPT 45378; principal; 2020-06-03 09:15)
DX: Z86.010 Personal history of colon polyps (principal); I10 Essential (primary) hypertension; D12.6 Benign neoplasm of colon, unspecified
CPT/HCPCS: 45331